=== PATIENT | female | born 1960 | race Caucasian/White ===

== ENCOUNTER 2024-09-27 12:12 | Emergency (ER) | payer MEDICAID ==
[~2024-09-27] VITALS: Ht 157.5 cm; Wt 70.0 kg
[2024-09-27 12:15] VITALS: O2SAT 99
[2024-09-27 12:41] LABS: BASOPHILS % 0.4 % (0.0-2.0); EOSINOPHILS % 0.3 % (0.0-5.0); HEMATOCRIT. 44.9 % (36.0-48.0); HEMOGLOBIN. 15.4 g/dL (12.0-16.0); LYMPHOCYTES % 20.4 % (20.0-50.0); MEAN CORPUSCULAR HEMOGLOBIN 27.9 pg (28.0-32.0); MEAN CORPUSCULAR HGB CONC 34.2 g/dL (31.0-37.0); MEAN CORPUSCULAR VOLUME 81.5 fL (81.0-99.0); MEAN PLATELET VOLUME 8.4 fl (7.4-10.4); NEUTROPHILS % 73.9 % (40.0-76.0); PLATELET 391 x1000/uL (130-400); RED BLOOD CELL COUNT 5.51 mill/uL (4.2-5.4); RED CELL DISTRIBUTION WIDTH 14.4 % (11.6-14.6); WHITE BLOOD COUNT 10.5 x1000/uL (4.5-11.0)
[2024-09-27 12:50] LABS: CHLORIDE 99 mEq/L (98-107); POTASSIUM 3.6 mEq/L (3.5-5.1); SODIUM 136 mEq/L (136-145)
[2024-09-27 12:51] LABS: CALCIUM 9.7 mg/dL (8.7-10.4); CARBON DIOXIDE 26 mEq/L (21-32)
[2024-09-27 12:53] LABS: PROTHROMBIN TIME 10.9 sec (9.6-11.0)
[2024-09-27 12:56] LABS: CREATININE 0.8 mg/dL (0.6-1.0); GLUCOSE 312 mg/dL (70-105); UREA NITROGEN BLOOD 11 mg/dL (9-23)
[2024-09-27 13:33] LABS: CLARITY URINE CLOUDY (CLEAR); COLOR URINE YELLOW (YELLOW); GLUCOSE URINE 3+ (NEGATIVE); KETONES URINE 4+ (NEGATIVE); LEUKOCYTE ESTERASE URINE TRACE (NEGATIVE); NITRITE URINE POSITIVE (NEGATIVE); OCCULT BLOOD URINE NEGATIVE (NEGATIVE); PROTEIN URINE 2+ (NEGATIVE); SPECIFIC GRAVITY URINE 1.039 (1.005-1.030)
[2024-09-27 14:18] LABS: SQUAMOUS EPITHELIAL CELL URINE 3+ /lpf (RARE/1+)
[2024-09-27 14:19] LABS: BACTERIA URINE 4+; RBC URINE 0-2 /hpf (0-2); WBC URINE 50-100 /hpf (0-2)
[2024-09-27] MEDS: CEFTRIAXONE SODIUM 1G VIAL IM ONE (14:45)
[2024-09-27] MEDS: ONDANSETRON 4MG ODT PO ONE (15:09)
[2024-09-27] MEDS: ACETAMINOPHEN 500MG TABLET PO ONE (15:09)
[2024-09-27 16:10] LABS: ALANINE AMINOTRANSFERASE 29 IU/L (10-49); ASPARTATE AMINOTRANSFERASE 27 IU/L (<34); BILIRUBIN DIRECT 0.5 mg/dL (<=3.0); PROTEIN TOTAL 8.3 g/dL (6.0-8.3)
[2024-09-27] MEDS ORDERED: IBUP-2029 MT (17:59)
[2024-09-27] MEDS ORDERED: AMOX1TAB16 MT (17:59)
[2024-09-27] MEDS: MORPHINE SULFATE 4 MG/ML INJ (FOR IV/IM USE) IV ONE (18:15)
[2024-09-27] MEDS: SODIUM CHLORIDE 0.9% (SEPSIS BOLUS) IV ONE (18:57)
[2024-09-27 19:44] LABS: LACTIC ACID 2.6 mmol/L (0.4-2.0)
[2024-09-27 20:19] LABS: CHLORIDE 101 mEq/L (98-107); POTASSIUM 4.6 mEq/L (3.5-5.1); SODIUM 136 mEq/L (136-145)
[2024-09-27 20:20] LABS: CARBON DIOXIDE 18 mEq/L (21-32)
[2024-09-27 20:25] LABS: CREATININE 0.7 mg/dL (0.6-1.0); GLUCOSE 271 mg/dL (70-105)
[2024-09-27 20:26] LABS: UREA NITROGEN BLOOD 13 mg/dL (9-23)
[2024-09-27 23:35] VITALS: BP 170/84; PULSE 68; RESP 16; TEMP 37.8; O2SAT 99
== END 2024-09-27 23:55 | disposition home or self-care (01) ==
LOC: ER 12:12 → EDBEDREQ 23:08 → EDBEDREQTM 23:08 → ER 23:55
DX: N39.0 Urinary tract infection, site not specified (principal); K57.32 Diverticulitis of large intestine without perforation or abscess without bleeding; E87.20 Acidosis, unspecified; R73.9 Hyperglycemia, unspecified; Z98.890 Other specified postprocedural states
CPT/HCPCS: 99285; 74176; 96360; 76705; 80076; 80048; 81003; 83605; 83690; 85025; 85610; 87040; 87086; 84145; 93005; 96372; 36415; Q0162; J0696; J7030